=== PATIENT | female | born 1960 | race African-American/Black ===

== ENCOUNTER → 2018-05-30 | Outpatient (CLI) | payer MEDICAID ==
[~2018-05-30] VITALS: Ht 168.9 cm; Wt 50.8 kg
== END | disposition home or self-care (01) ==
LOC: Rad HDHVI 07:54
PROVIDERS: ATTEND Internal Medicine
DX: I10 Essential (primary) hypertension (principal); R94.31 Abnormal electrocardiogram [ECG] [EKG]
CPT/HCPCS: 78452; 93017; 96374; A9500